=== PATIENT | female | born 1965 | race Two or more races ===

== ENCOUNTER 2019-11-29 07:10 | Outpatient (CLI) | payer OTHER | END 2019-11-29 07:27 | disposition home or self-care (01) | LOC: NUCLEAR 07:10 | DX: R07.89 Other chest pain (principal); R94.31 Abnormal electrocardiogram [ECG] [EKG]; I10 Essential (primary) hypertension; E66.8 Other obesity | CPT/HCPCS: 78452; 93017; A9500; J0153 ==